=== PATIENT | male | born 1965 ===

== ENCOUNTER 2017-10-15 19:21 | Emergency (ER) | payer BC, OTHER ==
[2017-10-15] MEDS ORDERED: Adacel (T-DAP) 0.5 ML VIAL ONE (20:24)
[2017-10-15] MEDS ORDERED: Bacitracin Zinc 1 Packet ONE (20:36)
== END 2017-10-15 20:43 | disposition home or self-care (01) ==
LOC: BURERS 19:21
DX: S01.511A Laceration without foreign body of lip, initial encounter (principal); E11.9 Type 2 diabetes mellitus without complications; I10 Essential (primary) hypertension; Z79.899 Other long term (current) drug therapy; W22.8XXA Striking against or struck by other objects, initial encounter
CPT/HCPCS: 12011; 90471; 90715